=== PATIENT | female | born 1960 | race Caucasian/White ===

== ENCOUNTER → 2019-01-29 | Outpatient (CLI) | payer BC, SELFPAY ==
--- NOTE | 2019-01-29 16:27 | BI_ITS ---
MAMMOGRAPHY - BILATERAL SCREENING REASON FOR EXAM: Female, 58 years old. Routine annual screening examination. PERTINENT HISTORY: Non-contributory. TECHNIQUE: Digital bilateral breast otoniel (3D mammographic acquisition) in the CC and MLO projections. 2-D mediolateral oblique (MLO) and craniocaudad (CC) views of both breasts were obtained. CAD: Full Field Digital Mammography with Computer Added Detection was performed. COMPARISON: Comparison is made with prior study dated September 28, 2016. FINDINGS: Breast Composition: There are scattered areas of fibroglandular density. There are no dominant masses or suspicious calcifications. Stable small benign appearing bilateral axillary lymph nodes. No other significant abnormalities are identified. There has been no significant change since the prior study. BI/SCREEN MAMM (CAD) W/OTONIEL BILAT IMPRESSION: Stable bilateral screening mammogram. Yearly follow-up mammogram recommended. (A) ASSESSMENT CATEGORY: BIRADS Category 2: Benign. A letter regarding these results will be sent to the patient by the facility within 30 days. Approximately 10% of breast cancers are not detected by mammography. A normal mammogram should not delay biopsy of a clinically suspicious abnormality. [id number] Electronically Signed: Eliezer Guerra, at 8:50 EDT , Service support ,
== END | disposition home or self-care (01) ==
PROVIDERS: Family Provider Family Medicine; PCP Family Medicine; Referring Provider Family Medicine; Visit Provider Family Medicine
DX: Z12.31 Encounter for screening mammogram for malignant neoplasm of breast (principal)
CPT/HCPCS: 77063; 77067

== ENCOUNTER → 2020-09-02 16:42 | Outpatient (CLI) | payer BC, SELFPAY ==
--- NOTE | 2020-09-02 16:50 | CT_ITS ---
STUDY: CT CHEST WITHOUT CONTRAST REASON FOR EXAM: Female, 60 years old. STRIDOR -- ACID REFLUX-SX RESOLVED SINCE PT STARTED MEDICATION RADIATION DOSAGE (If Supplied By Facility): CTDIvol = ( 12.75 ) mGy, DLP = ( 442.85 ) mGycm TECHNIQUE: Transaxial imaging was performed without the administration of intravenous contrast material. Individualized dose optimization techniques were used for this CT. COMPARISON: None. FINDINGS: Lungs are clear and well expanded. There is a tiny well rounded nodular density measuring approximately 2.5 mm in the right lower lobe of indeterminate etiology or clinical significance.. There is mild pleural parenchymal scarring in both pulmonary apices but no evidence for pleural effusion or pneumothorax Normal heart and pericardium. Normal mediastinum. Normal hilar regions. Normal unenhanced pulmonary arteries. Normal aorta arch and descending thoracic aorta. Incidental finding of mild asymmetric soft tissue thickening or possibly mucus deposit along the right lateral wall of the proximal trachea. Would recommend clinical correlation and possibly endoscopy for further evaluation if clinically warranted Dorsal spine demonstrates mild degenerative change Nonspecific fatty infiltration of liver.. CT/Chest without Contrast IMPRESSION: Tiny approximately 2.5 mm nodule in the right lower lobe indeterminate etiology or significance. If clinically warranted additional imaging utilizing FLEISCHNER Society criteria recommended for further assessment Incidental finding of asymmetric mucosal thickening or possibly deposition of mucus along the right lateral wall of the proximal trachea which may be further assessed with endoscopy if clinically warranted Electronically Signed: Dany Ahuja MD at 17:26 EST , Service support ,
== END ==
PROVIDERS: PCP Family Medicine; Visit Provider Otolaryngology
DX: R06.1 Stridor (principal)
CPT/HCPCS: 71250

== ENCOUNTER → 2020-12-11 16:44 | Outpatient (CLI) | payer BC, SELFPAY ==
--- NOTE | 2020-12-11 16:50 | CT_ITS ---
STUDY: CT CHEST WITH CONTRAST REASON FOR EXAM: Female, 60 years old. RLL NODULE RADIATION DOSAGE (If Supplied By Facility): CTDIvol = ( 11.12 ) mGy, DLP = ( 312.62 ) mGycm TECHNIQUE: Transaxial imaging was performed following intravenous administration of IV 100mL Isovue-300. Multiplanar coronal and sagittal images were reformatted. Individualized dose optimization techniques were used for this CT. COMPARISON: 09/02/2020. FINDINGS: Small nodule within the left lower lobe measuring 2.8 x 2.0 mm (image 79, series 4), stable in the interval. Minimal left lower lobe atelectasis. Spiculated nodule within the left lower lobe measuring 1.0 cm on prior study, currently measuring 1.0 cm. Small nodule within the left lower lobe on image 56, series 4 measuring 2.7 mm, stable in the interval. Small nodule abutting the major fissure on image 47, series 4 measuring 2.8 mm, stable. Additional nodule within the left upper lobe, image 51, series 4 at the left upper lobe measuring 3.1 mm, stable in the interval. Small nodule within the right middle lobe measuring 3.2 mm, stable in the interval. Several additional small nodules largest measuring 5 mm within the right middle lobe. These are stable. Small nodule within the right lower lobe, image 66, series 4 measuring 2.8 mm, stable. Multiple additional nodules measuring 2 mm in maximum dimension seen on images 53 and 61, series 4, stable. There is no demonstrated pleural abnormality. Normal heart and pericardium. Normal mediastinum. Normal hilar regions. Normal enhanced pulmonary arteries. Normal aorta arch and descending thoracic aorta. Normal osseous structures. Diffuse fatty liver, remainder of the visualized upper abdominal structures are unremarkable. CT/Chest WITH Contrast IMPRESSION: Multiple small bilateral lung nodules as described and essentially stable in the interval. Stability recommended to be performed with CT at 6 months interval for total period of 2 years since initial observation. No acute cardiopulmonary disease. Electronically Signed: Lisa Duarte MD at 0:34 EDT , Service support ,
[2020-12-11 17:06] LABS: CREATININE FINGERSTICK 1.2 mg/dL (0.55-1.02)
== END ==
PROVIDERS: PCP Family Medicine; Referring Provider Otolaryngology; Visit Provider Otolaryngology
DX: R91.1 Solitary pulmonary nodule (principal)
CPT/HCPCS: 71260; Q9967; A4216

== ENCOUNTER → 2022-02-03 | Outpatient (CLI) | payer BC, SELFPAY ==
[2022-02-03 08:29] LABS: Hematocrit 45.3 % (37-47); Hemoglobin 15.1 g/dL (12.0-15.0); Mean Corp Hgb Conc 33.3 g/dL (32-36); Mean Corpuscular Hgb 27.9 pg (27.0-32.0); Mean Corpuscular Volume 83.6 fL (81-99); Mean Platelet Vol. 10.5 fl (6.2-12.0); Platelet Count 209 K/mm3 (150-450); RBC Distribution Width CV 13.6 % (11.6-14.6); RBC Distribution Width SD 41.1 fl (35.1-43.9); Red Blood Count 5.42 M/mm3 (4.2-5.4); White Blood Count 7.1 K/mm3 (4.4-11.0)
[2022-02-03 09:13] LABS: ALB/GLOB Ratio 0.9 RATIO (0.9-2.4); AST(SGOT) 22 U/L (15-37); Alanine Aminotransfer ALT/SGPT 37 U/L (13-56); Albumin, Serum 3.7 g/dL (3.2-5.0); Alkaline Phosphatase 91 U/L (45-117); Anion Gap 6 (5-15); BUN 15 mg/dL (7-18); BUN/Creat Ratio 18.5 RATIO (10-20); Calcium,Total 9.1 mg/dL (8.5-10.1); Chloride 109 mmol/L (98-107); Cholesterol 252 mg/dL (200); Creatinine, Serum 0.81 mg/dL (0.55-1.02); EST Glomerular Filtration Rate 76 mL/min (>60); Est Glom Filt Rate - Afr Amer 92 mL/min (>60); Free T3 3.2 pg/mL (2.18-3.98); Glucose 109 mg/dL (74-106); High Density Lipoprotein 53 mg/dL; Potassium 3.8 mmol/L (3.5-5.1); Protein, Total 7.7 g/dL (6.4-8.2); Sodium Level 140 mmol/L (136-145); T4 Free Direct 1.12 ng/dL (0.76-1.46); Triglycerides 114 mg/dL; Very Low Density Lipoprotein 23 mg/dL (5-40)
[2022-02-03 09:33] LABS: Hepatitis C Antibody Non-Reactive (Nonreactive); Vitamin B12 502 pg/mL (211-911)
== END | disposition home or self-care (01) ==
LOC: LAB 07:48
DX: Z00.00 Encounter for general adult medical examination without abnormal findings (principal); R06.00 Dyspnea, unspecified; E78.00 Pure hypercholesterolemia, unspecified; R79.89 Other specified abnormal findings of blood chemistry; K21.9 Gastro-esophageal reflux disease without esophagitis
CPT/HCPCS: 36415; 80053; 80061; 82607; 84439; 84443; 84481; 85027; 86803

== ENCOUNTER → 2022-12-29 | Outpatient (CLI) | payer BC, SELFPAY ==
[2022-12-29 09:45] LABS: Hemoglobin A1c 5.9 % (3.8-5.6)
[2022-12-29 09:48] LABS: ALB/GLOB Ratio 0.8 RATIO (0.9-2.4); AST(SGOT) 31 U/L (15-37); Alanine Aminotransfer ALT/SGPT 44 U/L (13-56); Albumin, Serum 3.5 g/dL (3.2-5.0); Alkaline Phosphatase 86 U/L (45-117); Anion Gap 6 (5-15); BUN 13 mg/dL (7-18); BUN/Creat Ratio 17.4 RATIO (10-20); Chloride 109 mmol/L (98-107); Cholesterol 198 mg/dL (200); Creatinine, Serum 0.74 mg/dL (0.55-1.02); EST Glomerular Filtration Rate 84 mL/min (>60); Est Glom Filt Rate - Afr Amer 101 mL/min (>60); Globulin 4.2 g/dL (2.2-4.2); Glucose 88 mg/dL (74-106); High Density Lipoprotein 46 mg/dL; Potassium 3.7 mmol/L (3.5-5.1); Protein, Total 7.7 g/dL (6.4-8.2); Sodium Level 140 mmol/L (136-145); T4 Free Direct 1.22 ng/dL (0.76-1.46); Thyroid Stim Hormone (TSH) 9.08 uIU/mL (0.358-3.74); Triglycerides 113 mg/dL; Very Low Density Lipoprotein 23 mg/dL (5-40)
[2022-12-29 10:11] LABS: Hepatitis C Antibody Non-Reactive (Nonreactive); Vitamin B12 483 pg/mL (211-911)
== END | disposition home or self-care (01) ==
LOC: LAB 08:16
DX: Z00.00 Encounter for general adult medical examination without abnormal findings (principal); R79.89 Other specified abnormal findings of blood chemistry; R06.00 Dyspnea, unspecified; K21.9 Gastro-esophageal reflux disease without esophagitis; E78.00 Pure hypercholesterolemia, unspecified; R73.03 Prediabetes; R91.8 Other nonspecific abnormal finding of lung field
CPT/HCPCS: 36415; 80053; 80061; 82607; 83036; 84439; 84443; 84481; 86803

== ENCOUNTER 2023-03-08 01:38 | Emergency (ER) | payer BC, SELFPAY ==
[2023-03-08 01:38] VITALS: BP 163/93; PULSE 92; RESP 14; TEMP 36.3; O2SAT 98; BMI 30.2
--- NOTE | 2023-03-08 02:02 | CT_ITS ---
EXAM: CT MAXILLOFACIAL WITHOUT INTRAVENOUS CONTRAST CLINICAL INDICATION: facial injury TECHNIQUE: Helically acquired images were obtained of the face without intravenous contrast. This CT exam was performed using one or more of the following dose reduction techniques: automated exposure control, adjustment of the mA and/or kV according to patient size, and/or use of iterative reconstruction technique. RADIATION DOSE: Total DLP: 503.38 mGy-cm. COMPARISON: Cranial CT of this date. FINDINGS: BONES/JOINTS: C2/3 disc space is partially fused. C2/3 facet joints are fused. Degenerative disc space narrowing at the C4/5 and C5/6 levels with uncinate hypertrophy. Upper cervical facet arthritis is noted. The odontoid is intact. Degenerative narrowing of both temporomandibular joints. No TMJ dislocation. No acute facial bone fracture. SOFT TISSUES: Unremarkable. No focal subcutaneous swelling. No discrete fluid collections. ORBITS: Unremarkable. Both globes are unremarkable. Extraocular muscles are normal. Retrobulbar fat appears unremarkable. SINUSES: Unremarkable as visualized. Clear. MASTOID AIR CELLS: Unremarkable as visualized. Clear. CT/Sinus/Facial Bone IMPRESSION: No acute facial bone fracture or TMJ dislocation. Cervical degenerative disc disease and facet arthritis. Electronically Signed: Tu Ernst MD at 3:19 EDT ,
--- NOTE | 2023-03-08 02:02 | CT_ITS ---
We are attempting to reach an attending provider to discuss findings. An addendum with communication details will be sent when the communication is complete. EXAM: CT HEAD WITHOUT INTRAVENOUS CONTRAST CLINICAL INDICATION: head injury TECHNIQUE: Multiple axial images were obtained of the head without intravenous contrast. This CT exam was performed using one or more of the following dose reduction techniques: automated exposure control, adjustment of the mA and/or kV according to patient size, and/or use of iterative reconstruction technique. RADIATION DOSE: Total DLP: 745.49 mGy-cm. COMPARISON: No relevant prior studies available. FINDINGS: BRAIN AND EXTRA-AXIAL SPACES: A thin ribbon of lobulated hyperdensity seen along the left side of the falx cerebri, indicating an acute parafalcine subdural hematoma which measures up to 3 mm in thickness. This small subdural hematoma does not cause significant mass effect upon the adjacent parafalcine cortex. No subdural blood is seen overlying the cerebral convexities or along either side of tentorium. No evidence of acute infarct. No subarachnoid hemorrhage or epidural hematoma. There is preservation of the neil/white matter interface. Posterior fossa structures are unremarkable. Ventricles are appropriate for age. No hydrocephalus. Basal cisterns are patent. BONES/JOINTS: Unremarkable. No discrete lytic or blastic abnormalities. No linear or depressed skull fracture. SOFT TISSUES: Unremarkable. No scalp hematoma. SINUSES: Unremarkable as visualized. Clear. MASTOID AIR CELLS: Unremarkable. Clear. ORBITS: Visualized globes, extraocular muscles, optic nerves and retrobulbar fat appear unremarkable. CT/Brain/Head without Contrast IMPRESSION: Small acute left parafalcine subdural hematoma, measuring up to 3 mm in thickness. No skull fracture or parenchymal hemorrhage identified. Nonstandard communication protocol initiated. Electronically Signed: Tu Ernst MD at 2:44 EDT ,
--- NOTE | 2023-03-08 03:10 | CT_ITS ---
EXAM: CT CERVICAL SPINE WITHOUT INTRAVENOUS CONTRAST CLINICAL INDICATION: head injury TECHNIQUE: Helically acquired images were obtained of the cervical spine without intravenous contrast. 2D reformatted images were reviewed. This CT exam was performed using one or more of the following dose reduction techniques: automated exposure control, adjustment of the mA and/or kV according to patient size, and/or use of iterative reconstruction technique. RADIATION DOSE: Total DLP: 362.61 mGy-cm. COMPARISON: Facial bone CT of this date. FINDINGS: VERTEBRAE: Cervical vertebrae demonstrate normal curvature and alignment. No compression fracture, posterior element fracture or facet dislocation. The odontoid is intact. No discrete lytic or blastic abnormality. Normal alignment. Normal craniocervical junction and cervicothoracic junction. DISCS/SPINAL CANAL/NEURAL FORAMINA: C2/3 disc space is partially fused and the C2/3 facet joints are fused. Mild degenerative disc space narrowing at C3/4 with mild uncinate hypertrophy at this level. Moderately severe degenerative disc space narrowing at C4/5 and C5/6 with mild endplate sclerosis, marginal osteophytes and uncinate hypertrophy. Severe degenerative disc space narrowing at C6/7 with uncinate hypertrophy. Upper thoracic disc spaces are relatively preserved. Extensive cervical facet arthritis is noted. Broad-based annular bulging and posterior osteophytes mildly flatten the ventral aspect of thecal sac at the degenerated levels. Multilevel neural foraminal encroachment is present due to uncinate and facet hypertrophy, more severe on the left. No critical thecal sac stenosis. SOFT TISSUES: Unremarkable. No prevertebral soft tissue swelling. No soft tissue hematoma. LUNG APICES: Minimal biapical pleural parenchymal scarring. Visualized upper ribs are intact. CT/Spine Cervical without Contras IMPRESSION: Extensive cervical degenerative changes. No evidence of acute cervical spinal fracture or spondylolisthesis. Electronically Signed: Tu Ernst MD at 3:53 EDT ,
--- NOTE | 2023-03-08 03:42 | EDS_ITS ---
HPI History of Present Illness Chief Complaint: Fall Informant: patient and spouse/S.O. Narrative Narrative: Patient is a 62-year-old female with past medical history of GERD and hypothyroidism. She states that because of her GERD she will take Pepto-Bismol multiple times throughout the day. She states she felt she was having a flare and went to get some out of the kitchen this morning around 1:30 AM. She states that the manager gyn door was down and she tripped on this falling forward striking her head/face. She denies any LOC. She states she was able to get back up after the fall but noticed that she had facial swelling and nasal bleeding. She states the bleeding stopped and at this time she has no headache or light sensitivity or neck pain but secondary to the trauma comes in for evaluation. PFSH PFS Home Medications lansoprazole 30 mg capsule,delayed release (Prevacid) 30 mg PO DAILY 08/19/16 [History Last Taken Unknown] omeprazole 20 mg capsule,delayed release 20 mg PO BID 08/19/16 [History Last Taken Unknown] acetaminophen 300 mg-codeine 30 mg tablet 1 - 2 tab PO Q6H PRN Pain ##12 08/20/16 [Rx Last Taken Unknown] amoxicillin 875 mg tablet 875 mg PO BID #14 tabs 08/20/16 [Rx Last Taken Unknown] Allergy/AdvReac Type Severity Reaction Status Date / Time No Known Allergies Allergy Verified 08/19/16 21:19 Social History Smoking Status: Never smoker [facility] ED Constitutional Constitutional ED: Denies chills or fever(s) Eyes Eyes: Denies blurry vision or change in vision ENT ENT ED: Reports other Details: Positive nosebleed ; Denies sore throat Cardiovascular Cardiovascular: Denies chest pain Respiratory/Chest Respiratory/Chest: Denies cough or dyspnea Gastrointestinal Gastrointestinal: Denies abdominal pain, diarrhea, nausea or vomiting Genitourinary Genitourinary ED: Denies dysuria Musculoskeletal Musculoskeletal: Denies back pain, myalgias or neck pain Integumentary Reports Abrasions Neurologic Neurologic: Denies headache(s), paresthesias or weakness Hematologic/Lymphatic Hematologic/Lymphatic: Denies easy bleeding or easy bruising EXAM Physical Exam Const Vital Signs: 03/08/23 01:38 Temperature 97.4 F L Temperature Source Temporal Pulse Rate 92 Respiratory Rate 14 Blood Pressure 163/93 H Blood Pressure Mean 116 Pulse Ox 98 Oxygen Delivery Method Room Air Positive well nourished and well developed General Appearance ED: well developed HEENT HEENT Narrative: Patient has soft tissue swelling and ecchymosis to the bridge of the nose. There is also soft tissue swelling and ecchymosis to the left upper lip. No signs of depressed or basilar skull fracture No obvious dental fracture or jaw abnormality noted There is an internal left upper lip laceration that is dermal layer deep without active bleeding or foreign body. No septal hematoma noted Eyes PERRL and EOMs intact bilaterally Eyes Narrative: No hyphema Neck supple Neck Narrative: No bony deformity or step-off of the cervical spine no midline pain with palpation Patient is able to move her neck in all directions without pain Chest Wall palpation of chest normal Resp normal respiratory effort and clear to auscultation bilaterally Cardio regular rate and regular rhythm GI normal to inspection, nondistended, normoactive bowel sounds, non-tender, non- distended and no masses Auscultation: normoactive bowel sounds Palpation: soft Back/Spine Back/Spine Narrative: No bony deformity or step-off of the thoracic or lumbar spine no midline pain on palpation Extremity normal to inspection Neuro oriented x3 and CN's II-XII intact bilaterally Sensorium / Orientation: alert Motor Exam: strength 5/5 throughout Psych mental status grossly normal Skin Skin Narrative: Soft tissue swelling and ecchymosis to the left upper lip and bridge of the nose as documented above MDM MDM MDM Narrative Medical decision making narrative: Patient presented to the ER awake and alert with normal neurologic exam. She reported mechanical fall and therefore there is no need for cardiac or syncope work-up. With differential diagnosis concerning for skull fracture versus brain bleed versus facial fracture CT of the head and face were obtained. Facial CT revealed no acute trauma but head CT showed a small 3 mm subdural hematoma. The patient does not take blood thinners even aspirin and her neuro exam is normal but as we do not have neurosurgery at this facility she cannot stay. Therefore [facility] is contacted and they do agree to accept the patient at this time as an ER to ER transfer secondary to the brain bleed status post fall. Patient was informed of this and is agreeable to the plan of care. She has remained hemodynamically stable and neurologically intact for her entire ER stay History & Record Review Discussion w/independent historian: Patient Radiography Diagnostic Testing: Clinical Impression(s) from Imaging Studies Brain CT 03/08/23 02:02 IMPRESSION: Small acute left parafalcine subdural hematoma, measuring up to 3 mm in thickness. No skull fracture or parenchymal hemorrhage identified. Nonstandard communication protocol initiated. Electronically Signed: Tu Ernst MD at 2:44 EDT , ADDENDUM: 03/08/23 0253 IMPRESSION: Small acute left parafalcine subdural hematoma, measuring up to 3 mm in thickness. No skull fracture or parenchymal hemorrhage identified. Nonstandard communication protocol initiated. N.B. : The above Results were Read Back by Tu Ernst MD to Nickolas Boateng DO, and understanding confirmed on 03/08/2023 02:47:02 (ET). Electronically Signed: Tu Ernst MD at 2:44 EDT , Facial/Sinus 03/08/23 02:02 IMPRESSION: No acute facial bone fracture or TMJ dislocation. Cervical degenerative disc disease and facet arthritis. Electronically Signed: Tu Ernst MD at 3:19 EDT , Management Discussion w/another healthcare provider: Biology Department Chair and Radiologist Critical Care Time Critical Care Time: Yes Critical care time (excluding procedures): Discussing w/Patient &/or Family/Educational Fundraising Director, Discussing w/Consultants, Arranging Admission or Transfer and - (Critical care time of 33 minutes) Discharge Plan Triage Chief Complaint: Fall ED Provider: Nickolas Boateng Dx/Rx/DC Orders Clinical Impression: Acute subdural hematoma, Contusion of face, Accidental fall Prescriptions: No Action omeprazole 20 MG capsule 20 mg PO BID lansoprazole [Prevacid] 30 MG capsule 30 mg PO DAILY amoxicillin 875 MG tablet 875 mg PO BID Qty: 14 0RF acetaminophen-codeine 1 TABLET tablet 1 - 2 tab PO Q6H PRN (Reason: Pain) Qty: 12 0RF Primary Care Provider: Alfredo Gallardo Referrals: Alfredo Gallardo DO [Primary Care Provider] - Disposition Disposition: Acute Care Hospital Discharge Location: [facility]
[2023-03-08 03:48] LABS: Absolute Lymphocyte Count 2.11 X10^3/uL (0.83-4.51); Absolute Neutrophil Count 4.7 X10^3/uL (2.0-7.7); Basophil# 0.05 X10^3/uL; Basophil% 0.7 % (0-1); Eosinophil# 0.12 X10^3/uL; Eosinophils% 1.6 % (0-5); Hematocrit 43.5 % (37-47); Hemoglobin 14.3 g/dL (12.0-15.0); Lymphocyte # 2.11 X10^3/ul (0.83-4.51); Lymphocyte % 27.4 % (19-41); Mean Corp Hgb Conc 32.9 g/dL (32-36); Mean Corpuscular Hgb 28.3 pg (27.0-32.0); Mean Platelet Vol. 9.4 fl (6.2-12.0); Monocyte# 0.65 X10^3/uL; Monocyte% 8.5 % (0-10); NRBC Flagged by Analyzer 0 % (0-5); Neutrophil # 4.73 X10^3/uL (2.7-7.7); Neutrophil % 61.4 % (47-70); Platelet Count 254 K/mm3 (150-450); RBC Distribution Width CV 13.5 % (11.6-14.6); RBC Distribution Width SD 42.3 fl (35.1-43.9); Red Blood Count 5.06 M/mm3 (4.2-5.4); White Blood Count 7.7 K/mm3 (4.4-11.0)
[2023-03-08 03:56] LABS: International Normalized Ratio 0.9; Prothrombin Time (Protime)PT. 11.7 SECONDS (11.7-14.9)
[2023-03-08 03:57] LABS: Partial Thromboplast Time 37.7 Seconds (24.1-36.2)
[2023-03-08 04:02] LABS: Anion Gap 5 (5-15); BUN 14 mg/dL (7-18); BUN/Creat Ratio 16.4 RATIO (10-20); Calcium,Total 9.2 mg/dL (8.5-10.1); Chloride 110 mmol/L (98-107); Creatinine, Serum 0.86 mg/dL (0.55-1.02); EST Glomerular Filtration Rate 71 mL/min (>60); Est Glom Filt Rate - Afr Amer 86 mL/min (>60); Estimated Creatinine Clearance 53.64 ml/min; Glucose 124 mg/dL (74-106); Potassium 3.4 mmol/L (3.5-5.1); Sodium Level 143 mmol/L (136-145)
--- NOTE | 2023-03-08 04:03 | NURSING ---
CALLED PHYSICIANS AT 0350AM AND WAS GIVEN AN 8AM ETA FOR A TRAUMA TRANSFER. THEY SAID THEY WILL TRY TO OUTSOURCE BUT WHEN I CALLED BACK AT 0405AM THEY SAID THEY COULD NOT OUTSOURCE THE TRIP.
[2023-03-08 04:20] VITALS: BP 144/88; PULSE 87; RESP 18; TEMP 36.6; O2SAT 99
[2023-03-08 05:18] VITALS: BP 137/84; PULSE 80; RESP 16; TEMP 36.7; O2SAT 95
[2023-03-08 05:55] VITALS: BP 137/84; PULSE 80; RESP 16; TEMP 36.7; O2SAT 95
[2023-03-08 07:36] VITALS: BP 131/85; PULSE 75; RESP 15; O2SAT 97
== END 2023-03-08 08:37 | disposition short-term general hospital (02) ==
PROVIDERS: Emergency Provider Emergency Medicine; Visit Provider Emergency Medicine
DX: S06.5X0A Traumatic subdural hemorrhage without loss of consciousness, initial encounter (principal); K21.9 Gastro-esophageal reflux disease without esophagitis; E03.9 Hypothyroidism, unspecified; S01.511A Laceration without foreign body of lip, initial encounter; S00.531A Contusion of lip, initial encounter; S00.33XA Contusion of nose, initial encounter; W18.09XA Striking against other object with subsequent fall, initial encounter
CPT/HCPCS: 70450; 70486; 72125; 80048; 85025; 85610; 85730; 99283

== ENCOUNTER 2023-03-15 13:53 | Emergency (ER) | payer BC, SELFPAY ==
[2023-03-15 13:54] VITALS: BP 147/107; PULSE 79; RESP 18; TEMP 36.6; O2SAT 97; BMI 30.7
[2023-03-15 14:06] VITALS: BP 123/89; PULSE 79; RESP 12; O2SAT 99
--- NOTE | 2023-03-15 14:22 | EX.ED.VIS.HA ---
HPI History of Present Illness Chief Complaint: Dizziness Narrative Narrative: 62-year-old female presenting with mild headache symptoms. She states her head feels heavy. She denies visual complaints or hearing complaints. She denies photophobia or phonophobia. She states that she does not believe she is lightheaded but she does feel like my body has to catch up with me. Patient seen about a week ago after a mechanical fall in which she struck her head and had subdural hematoma and was sent to [facility]. She had to repeat CTs done with no worsening subdural. Patient was discharged home on Keppra as prophylaxis. Last dose was yesterday. She does not know if she is feeling this way because she stopped it Keppra but she wanted to get checked out. She denies chest pain, palpitations, shortness of breath. She denies nausea, vomiting, diarrhea. She states been eating and drinking well and making normal urine and stool. Patient states that she had a higher level activity yesterday than she normally would throughout the week and was feeling like she was on the mend and now she feels worse. She has not had any new trauma. She is on anticoagulation. [facility] Medical History Brain stem hemorrhage Esophageal stricture GERD (gastroesophageal reflux disease) Home Medications acetaminophen 300 mg-codeine 30 mg tablet 1 - 2 tab PO Q6H PRN Pain ##12 08/20/16 [Rx Last Taken Unknown] esomeprazole magnesium 40 mg capsule,delayed release 40 mg PO Q24H 03/15/23 [History Last Taken Unknown] levothyroxine 25 mcg tablet 25 mcg PO DAILY 03/15/23 [History Last Taken Unknown] Allergy/AdvReac Type Severity Reaction Status Date / Time No Known Allergies Allergy Verified 03/15/23 13:56 Family History no significant family his Surgical History History of tonsillectomy Hx of section Social History household members: spouse housing: house Smoking Status: Never smoker EXAM Physical Exam Const Vital Signs: 03/15/23 13:54 03/15/23 14:06 03/15/23 14:31 Temperature 97.8 F Temperature Source Temporal Pulse Rate 79 79 Respiratory Rate 18 12 Blood Pressure 147/107 H 123/89 H Blood Pressure Mean 120 100 Pulse Ox 97 99 98 Oxygen Delivery Method Room Air Room Air Room Air 03/15/23 16:30 Temperature Temperature Source Pulse Rate Respiratory Rate Blood Pressure 106/71 Blood Pressure Mean Pulse Ox Oxygen Delivery Method General Appearance ED: Negative for pallor HEENT Reports normocephalic and head/scalp atraumatic Eyes PERRL and EOMs intact bilaterally General Eye ED: Negative for pale conjunctiva Neck no lymphadenopathy Chest Wall inspection of chest normal and palpation of chest normal Resp normal respiratory effort and clear to auscultation bilaterally Auscultation: Negative for rales, rhonchi or wheezes Cardio regular rate and regular rhythm GI normal to inspection, nondistended, normoactive bowel sounds and non-distended Auscultation: normoactive bowel sounds Palpation: soft Narrative: Deferred Extremity General Extremety ED: Negative for edema or tenderness General Extremity: Negative for edema Neuro oriented x3, CN's II-XII intact bilaterally and no sensory deficits noted Sensorium / Orientation: awake and alert Motor Exam: strength 5/5 throughout Psych mental status grossly normal Attitude: No agitated Skin no rashes or lesions noted and no wounds General Skin Exam: Negative for jaundice or pallor MDM MDM MDM Narrative Medical decision making narrative: Patient presenting with headache and the feeling of being off. Differential includes subdural hematoma, headache, dehydration, anemia, electrolyte abnormalities, dysrhythmia. CBC will be obtained to assess white blood cell count, hemoglobin, platelets. BMP to assess renal function and electrolytes. High-sensitivity troponin EKG to assess for ischemia and dysrhythmia. Chest x-ray to rule out pneumonia. CBC shows no leukocytosis. Hemoglobin hematocrit are stable. Platelets normal. Renal function electrolytes within normal limits. High-sensitivity tone is 3. EKG was obtained to assess for dysrhythmia and this is normal sinus rhythm with a rate of 76 bpm without sign of ischemic change or ectopy on my interpretation. Chest x-ray shows no acute process on my interpretation. We did obtain a CT brain and this shows an improving dural hematoma. At this point I feel the patient is stable for discharge home. She did ask if the symptoms could be caused by the Keppra and I was not sure. I recommended she call her neurosurgeon. She also asked for details on whether she should go back to work part-time. I again deferred to her neurosurgeon for those details. She found understanding. She discharged home in stable condition. Impression: 1. Headache 2. Generalized weakness 3. History of subdural hematoma Lab Data Labs: Laboratory Results - last 24 hr 03/15/23 03/15/23 14:39 15:07 WBC 8.0 RBC 5.51 H Hgb 15.2 H Hct 49.6 H MCV 90.0 MCH 27.6 MCHC 30.6 L RDW Std Deviation 44.7 H RDW Coeff of Janes 13.4 Plt Count 228 MPV 9.7 Immature Gran % (Auto) 0.500 Neut % (Auto) 67.2 Lymph % (Auto) 24.4 [place] % (Auto) 6.5 Eos % (Auto) 0.8 Baso % (Auto) 0.6 Absolute Neuts (auto) 5.3 Absolute Lymphs (auto) 1.94 Nucleated RBC % 0 Sodium Cancelled 140 Potassium Cancelled 3.8 Chloride Cancelled 109 H Carbon Dioxide Cancelled 27.0 Anion Gap Cancelled 4 L BUN Cancelled 15 Creatinine Cancelled 0.86 Estim Creat Clear Calc Cancelled 53.64 Est GFR (MDRD) Af Amer Cancelled 86 Est GFR (MDRD) Non-Af Cancelled 71 BUN/Creatinine Ratio Cancelled 17.5 Glucose Cancelled 126 H Calcium Cancelled 9.1 Troponin I High Sens Cancelled 3 Radiography Diagnostic Testing: Clinical Impression(s) from Imaging Studies Brain CT 03/15/23 14:25 IMPRESSION: There is interval decreasing left parafalcine subdural hematoma since the previous study. Electronically Signed: Harlan Nichole DO at 14:48 EDT , Chest X-Ray 03/15/23 14:43 IMPRESSION: No radiographic evidence of acute cardiopulmonary disease. Electronically Signed: Harlan Nichole DO at 15:45 EDT , Discharge Plan Triage Chief Complaint: Dizziness ED Provider: Mick Marte Dx/Rx/DC Orders Instructions: ED Dizziness, Uncertain Cause Prescriptions: No Action acetaminophen-codeine 1 TABLET tablet 1 - 2 tab PO Q6H PRN (Reason: Pain) Qty: 12 0RF esomeprazole magnesium 40 mg capsule,delayed release(DR/EC) 40 mg PO Q24H Patient Comments: TAKE 1 CAPSULE BY MOUTH EVERY DAY levothyroxine 25 mcg tablet 25 mcg PO DAILY Patient Comments: TAKE 1 TABLET BY MOUTH EVERY OTHER DAY Primary Care Provider: Alfredo Gallardo Referrals: Alfredo Gallardo DO [Primary Care Provider] - Disposition Disposition: Home, Self Care Discharge Date/Time: 03/15/23 16:31
--- NOTE | 2023-03-15 14:25 | CT_ITS ---
STUDY: CT BRAIN WITHOUT CONTRAST REASON FOR EXAM: Female, 62 years old. headache RADIATION DOSAGE (If Supplied By Facility): CTDIvol = ( 47.06 ) mGy, DLP = ( 819.74 ) mGycm TECHNIQUE: Transaxial CT imaging of the brain was performed without administration of intravenous contrast material. Individualized dose optimization techniques were used for this CT. COMPARISON: March 08, 2023 FINDINGS: Normal soft tissue structures. Normal calvarium. Normal size ventricles and extra-axial spaces for the patient''s age. Normal white matter tracts of the cerebral hemispheres. Normal basal ganglia and thalami. Normal brainstem. Normal cerebellum. There is interval decreasing left parafalcine subdural hematoma since the previous study. There are no findings of an acute ischemic infarction. Normal visualized paranasal sinuses. CT/Brain/Head without Contrast IMPRESSION: There is interval decreasing left parafalcine subdural hematoma since the previous study. Electronically Signed: Harlan Nichole DO at 14:48 EDT ,
[2023-03-15 14:31] VITALS: O2SAT 98
--- NOTE | 2023-03-15 14:43 | RAD_ITS ---
INDICATION: chest pain EXAMINATION/TECHNIQUE: X-RAY - XR Chest 1 View COMPARISON: FINDINGS: LINES/DEVICES: None. LUNGS: No consolidation, edema or effusion. No pneumothorax. MEDIASTINUM AND CARDIOVASCULAR STRUCTURES: Cardiac silhouette not enlarged. Central airways and mediastinal contour are unremarkable. BONES AND SOFT TISSUES: Unremarkable. RAD/Chest 1 View (Portable) IMPRESSION: No radiographic evidence of acute cardiopulmonary disease. Electronically Signed: Harlan Nichole DO at 15:45 EDT ,
[2023-03-15 14:47] LABS: Absolute Lymphocyte Count 1.94 X10^3/uL (0.83-4.51); Absolute Neutrophil Count 5.3 X10^3/uL (2.0-7.7); Basophil# 0.05 X10^3/uL; Basophil% 0.6 % (0-1); Eosinophil# 0.06 X10^3/uL; Eosinophils% 0.8 % (0-5); Hematocrit 49.6 % (37-47); Hemoglobin 15.2 g/dL (12.0-15.0); Lymphocyte # 1.94 X10^3/ul (0.83-4.51); Lymphocyte % 24.4 % (19-41); Mean Corp Hgb Conc 30.6 g/dL (32-36); Mean Corpuscular Hgb 27.6 pg (27.0-32.0); Mean Platelet Vol. 9.7 fl (6.2-12.0); Monocyte# 0.52 X10^3/uL; Monocyte% 6.5 % (0-10); NRBC Flagged by Analyzer 0 % (0-5); Neutrophil # 5.34 X10^3/uL (2.7-7.7); Neutrophil % 67.2 % (47-70); Platelet Count 228 K/mm3 (150-450); RBC Distribution Width CV 13.4 % (11.6-14.6); RBC Distribution Width SD 44.7 fl (35.1-43.9); Red Blood Count 5.51 M/mm3 (4.2-5.4)
[2023-03-15 15:41] LABS: Anion Gap 4 (5-15); BUN 15 mg/dL (7-18); BUN/Creat Ratio 17.5 RATIO (10-20); Calcium,Total 9.1 mg/dL (8.5-10.1); Chloride 109 mmol/L (98-107); Creatinine, Serum 0.86 mg/dL (0.55-1.02); EST Glomerular Filtration Rate 71 mL/min (>60); Est Glom Filt Rate - Afr Amer 86 mL/min (>60); Estimated Creatinine Clearance 53.64 ml/min; Glucose 126 mg/dL (74-106); Potassium 3.8 mmol/L (3.5-5.1); Sodium Level 140 mmol/L (136-145); Troponin-I HS 3 pg/mL (3.0-54.0)
[2023-03-15 16:30] VITALS: BP 106/71
== END 2023-03-15 16:31 | disposition home or self-care (01) ==
PROVIDERS: Emergency Provider Student in an Organized Health Care Education/Training Program; Visit Provider Student in an Organized Health Care Education/Training Program
DX: R42 Dizziness and giddiness (principal); R51.9 Headache, unspecified; Z79.890 Hormone replacement therapy
CPT/HCPCS: 70450; 71045; 80048; 84484; 85025; 93005; 99283; A4216

== ENCOUNTER → 2023-06-20 | Outpatient (CLI) | payer BC, SELFPAY ==
[2023-06-20 09:43] LABS: Hematocrit 44.5 % (37-47); Hemoglobin 14.1 g/dL (12.0-15.0); Mean Corp Hgb Conc 31.7 g/dL (32-36); Mean Corpuscular Volume 85.1 fL (81-99); Mean Platelet Vol. 9.9 fl (6.2-12.0); Platelet Count 247 K/mm3 (150-450); RBC Distribution Width CV 13.6 % (11.6-14.6); RBC Distribution Width SD 42.2 fl (35.1-43.9); Red Blood Count 5.23 M/mm3 (4.2-5.4); White Blood Count 5.8 K/mm3 (4.4-11.0)
[2023-06-20 10:14] LABS: T4 Total, Thyroxin 11.4 ug/dL (4.8-13.9); Thyroid Stim Hormone (TSH) 7.66 uIU/mL (0.358-3.74)
[2023-06-20 10:37] LABS: Hemoglobin A1c 5.9 % (3.8-5.6)
== END | disposition home or self-care (01) ==
DX: Z00.00 Encounter for general adult medical examination without abnormal findings (principal); E11.9 Type 2 diabetes mellitus without complications
CPT/HCPCS: 36415; 83036; 84436; 84443; 85027

== ENCOUNTER → 2023-09-12 | Outpatient (CLI) | payer BC, SELFPAY ==
[2023-09-12 10:33] LABS: T4 Free Direct 1.07 ng/dL (0.76-1.46); Thyroid Stim Hormone (TSH) 5.93 uIU/mL (0.358-3.74)
== END | disposition home or self-care (01) ==
LOC: LAB 08:33
DX: Z00.00 Encounter for general adult medical examination without abnormal findings (principal); E03.9 Hypothyroidism, unspecified; R79.89 Other specified abnormal findings of blood chemistry
CPT/HCPCS: 36415; 84439; 84443

== ENCOUNTER → 2024-01-06 | Outpatient (CLI) | payer BC, SELFPAY ==
[2024-01-06 10:23] LABS: Hemoglobin A1c 5.8 % (3.8-5.6)
[2024-01-06 10:25] LABS: Microalbumin,Random Urine 8.7 mg/L (NO RANGE EST.); Microalbumin:Creatinine Ratio 5.2 mg/g CRE (<30 mg/g CRE)
[2024-01-06 10:37] LABS: T4 Free Direct 1.18 ng/dL (0.76-1.46); Thyroid Stim Hormone (TSH) 4.52 uIU/mL (0.358-3.74)
[2024-01-08 08:55] LABS: Vitamin B12 376 pg/mL (211-911)
== END | disposition home or self-care (01) ==
DX: Z00.00 Encounter for general adult medical examination without abnormal findings (principal); K21.9 Gastro-esophageal reflux disease without esophagitis; Z79.899 Other long term (current) drug therapy; R73.03 Prediabetes; E03.9 Hypothyroidism, unspecified; R79.89 Other specified abnormal findings of blood chemistry
CPT/HCPCS: 36415; 82043; 82570; 82607; 83036; 84439; 84443

== ENCOUNTER → 2024-01-18 | Outpatient (CLI) | payer BC, SELFPAY ==
--- NOTE | 2024-01-18 16:06 | BI_ITS ---
MAMMOGRAPHY - BILATERAL SCREENING 3-D TOMOSYNTHESIS REASON FOR EXAM: Female, 63 years old. SCREENING PERTINENT HISTORY: No significant family history. TECHNIQUE: 2-D mammograms and 3-D Tomosynthesis of the breast (s) were performed. CAD was performed. COMPARISON: 01/29/2019 FINDINGS: The breast composition is composed of scattered fibroglandular density. Scattered benign calcifications are seen. No dense spiculated masses or suspicious microcalcifications are identified. No architectural distortion is identified. There is no skin thickening or retraction. There has been no significant change since the prior study. BI/SCRN MAMM (CAD)W/OTONIEL BILAT IMPRESSION: No mammographic signs of malignancy. Routine yearly mammograms recommended. ASSESSMENT CATEGORY: BIRADS Category 1: Negative. A letter regarding these results will be sent to the patient by the facility within 30 days. FOLLOW UP RECOMMENDATION: Yearly follow up mammogram recommended. (A) Approximately 10% of breast cancers are not detected by mammography. A normal mammogram should not delay biopsy of a clinically suspicious abnormality. Electronically Signed: Pedrito Fischer MD at 13:30 EDT ,
== END | disposition home or self-care (01) ==
LOC: OPBI 16:22
DX: Z12.31 Encounter for screening mammogram for malignant neoplasm of breast (principal)
CPT/HCPCS: 77063; 77067

== ENCOUNTER 2025-05-26 22:33 | Emergency (ER) | payer BC, SELFPAY ==
[2025-05-26 22:34] VITALS: BP 167/107; PULSE 75; RESP 16; TEMP 36.6; O2SAT 100; BMI 30.2
--- NOTE | 2025-05-26 23:18 | EKG12_ITS ---
Test Reason : DYSRHYTHMIA
--- NOTE | 2025-05-26 23:18 | CT_ITS ---
PROCEDURE: CT/Abdomen/Pelvis W IV Cont ONLY
[2025-05-26 23:29] LABS: Hematocrit 42.4 % (37-47); Hemoglobin 14.6 g/dL (12.0-15.0); Immature Granulocytes Count 0.030 X10^3/uL (0.0-0.0); Mean Corp Hgb Conc 34.4 g/dL (32-36); Mean Corpuscular Volume 84.1 fL (81-99); Mean Platelet Vol. 9.5 fl (6.2-12.0); NRBC Flagged by Analyzer 0 % (0-5); Platelet Count 272 K/mm3 (150-450); RBC Distribution Width CV 14.0 % (11.6-14.6); RBC Distribution Width SD 43.1 fl (35.1-43.9); Red Blood Count 5.04 M/mm3 (4.2-5.4); White Blood Count 11.0 K/mm3 (4.4-11.0)
[2025-05-26] MEDS: Lidocaine 2% Viscous15 ML UDC 15 ML PO (23:36)
[2025-05-26] MEDS: Pantoprazole Sodium 40 MG in 0.9% Normal Saline (100mL MB+) 100 ML 300 MG IV (23:36)
[2025-05-26] MEDS: 0.9% Normal Saline (1000mL) 1,000 ML 999 ML IV (23:36)
[2025-05-26 23:50] LABS: Troponin T High Sensitivity < 6 ng/L (<=14)
[2025-05-26 23:52] LABS: Lipase 17 U/L (13-75)
--- NOTE | 2025-05-27 | US_ITS ---
PROCEDURE: US/Gallbladder
[2025-05-27 00:03] LABS: AST(SGOT) 21 U/L (<=31); Alanine Aminotransfer ALT/SGPT 18 U/L (<=34); Albumin, Serum 4.1 g/dL (3.4-4.8); Alkaline Phosphatase 91 U/L (35-104); Anion Gap 10 (5-15); BUN 12 mg/dL (4-19); BUN/Creat Ratio 18.2 RATIO (10-20); Bilirubin, Direct 0.09 mg/dL (0.00-0.30); Calcium,Total 8.8 mg/dL (7.6-11.0); Carbon Dioxide 25.2 mmol/L (21.0-32.0); Chloride 106 mmol/L (98-108); Estimated Creatinine Clearance 82.82 ml/min (50-250); Globulin 3.2 g/dL (2.2-4.2); Glucose 104 mg/dL (70-99); Potassium 3.1 mmol/L (3.3-5.1)
[2025-05-27 00:28] VITALS: BP 138/86; PULSE 73; RESP 16; O2SAT 99
[2025-05-27] MEDS: HYDROmorphone 0.5 MG/0.5 ML SYRINGE IV (01:00)
[2025-05-27] MEDS: Piperacil/Tazobactam 3.375 GM in 0.9% Normal Saline (50mL MB+) 50 ML IV (01:01)
--- NOTE | 2025-05-27 01:48 | EX.ED.DYSGE1 ---
HPI History of Present Illness Chief Complaint: Abd Pain Informant: patient and spouse/S.O. Narrative Narrative: Patient is a 64-year-old female with past medical history of GERD and hypothyroidism. She states that she takes omeprazole for her GERD and that it typically will control her symptoms. She states that last night she ate a hamburger which she does not typically eat and ate later in the evening which she does not typically do. She states she woke this morning and just felt off. She states she noticed some generalized upper abdominal discomfort with slight radiation into the chest. She states she was able to take her omeprazole as well as some ibuprofen and had symptom improvement. However she states as the medications wore off the symptoms would return. She states that they have been present throughout the entire day but as they are not resolving as they typically do with her standard GERD symptoms she was concerned that there was another reason for her persistent discomfort and with this she presents for evaluation [facility] Medical History Brain stem hemorrhage GERD (gastroesophageal reflux disease) Esophageal stricture Home Medications ?Medication ?Instructions ?Recorded ?Last Taken ?Type esomeprazole magnesium 40 mg 40 mg PO Q24H PRN upset abdomen 03/15/23 Unknown History capsule,delayed release levothyroxine 25 mcg tablet 25 mcg PO DAILY 03/15/23 Unknown History sucralfate 1 gram tablet (Carafate) 1 g PO TID 7 days #21 tabs 05/27/25 Unknown Rx Allergy/AdvReac Type Severity Reaction Status Date / Time No Known Allergies Allergy Verified 05/26/25 22:33 Family History no significant family his Surgical History History of tonsillectomy Hx of section Social History household members: spouse housing: house Smoking Status: Never smoker ROS ROS ED Constitutional Constitutional ED: Denies chills or fever(s) Eyes Eyes: Denies blurry vision or change in vision ENT ENT ED: Denies sore throat Cardiovascular Cardiovascular: Reports chest pain Respiratory/Chest Respiratory/Chest: Denies cough or dyspnea Gastrointestinal Gastrointestinal: Reports abdominal pain; Denies constipation, diarrhea, nausea or vomiting Genitourinary Genitourinary ED: Denies dysuria Musculoskeletal Musculoskeletal: Reports back pain; Denies myalgias Integumentary Denies rash Neurologic Neurologic: Denies headache(s) Hematologic/Lymphatic Hematologic/Lymphatic: Denies easy bleeding or easy bruising EXAM Physical Exam Const Vital Signs: 05/26/25 22:34 05/27/25 00:28 05/27/25 02:00 Temperature 97.9 F Temperature Source Oral Pulse Rate 75 73 Respiratory Rate 16 16 Blood Pressure 167/107 H 138/86 H 145/86 H Blood Pressure Mean 127 103 105 Pulse Ox 100 99 Oxygen Delivery Method Room Air Room Air Positive well nourished and well developed General Appearance ED: well developed; Negative for pallor HEENT HEENT Narrative: Normocephalic atraumatic No tongue or lip swelling no oral lesions no airway edema or compromise No secondary findings in the posterior pharynx to suggest infection Eyes PERRL and EOMs intact bilaterally General Eye ED: Negative for scleral icterus Neck supple Chest Wall palpation of chest normal Resp normal respiratory effort and clear to auscultation bilaterally Cardio regular rate and regular rhythm Rate: other Other Details: Heart is regular rate and rhythm without murmurs rubs or gallop Radial and carotid pulses are equal and symmetric GI non-distended and no masses GI Narrative: Abdomen is soft and nondistended with normal active bowel sounds The patient has diffuse upper abdominal pain but it is greatest in the right upper quadrant. There is voluntary guarding in the right upper quadrant but negative sign No peritoneal sign. No pulsatile mass Auscultation: normoactive bowel sounds Palpation: soft Back/Spine no CVA tenderness Extremity normal to inspection Neuro oriented x3, CN's II-XII intact bilaterally and no sensory deficits noted Sensorium / Orientation: alert Motor Exam: strength 5/5 throughout Psych mental status grossly normal Skin no rashes or lesions noted and no wounds General Skin Exam: Negative for jaundice or pallor MDM MDM MDM Narrative Medical decision making narrative: Patient presented to the ER complaining of persistent upper abdominal discomfort throughout the day not responding to her typical home treatments. With the pain being in the upper abdomen and radiating to the chest this could be an exacerbation of her GERD however patient could have also atypical presentation for ACS or potentially pancreatitis or biliary colic or acute cholecystitis. Secondary to this basic blood work was obtained with EKG. EKG revealed normal sinus rhythm going against cardiac dysrhythmia as a cause of her symptoms and no ischemic changes. The patient's troponin at less than 6 correlates with the EKG going against ACS as a cause of her discomfort. She does not have a white count or left shift which would go against secondary infection such as colitis or acute cholecystitis. Liver enzymes are also normal going against potentially gallbladder dysfunction. Lipase is normal going against pancreatitis. However as she did have a positive sign on exam I did elect to perform a CT scan with IV contrast as I cannot perform an ultrasound at this time of night. The CT scan did show gallstones and sludge with slight surrounding edema concerning for evolving/developing acute cholecystitis. Secondary to this the patient was given a dose of Zosyn in the ER. She will need an ultrasound to confirm potentially cholecystitis. The ultrasound was able to be performed and it showed gallstones with equivocal findings for acute cholecystitis once again. The case was then discussed with general surgeon Dr. Velásquez. She was able to review the imaging and agrees there is gallstones present but does not feel there were any secondary findings such as [place] cholecystic fluid/edema or wall thickening to correlate with acute cholecystitis which also would correlate with the fact that her labs revealed no clinically significant findings. Therefore she does not recommend an emergent HIDA scan and feels the patient can be discharged and followed up with her as an outpatient. She feels that history and symptoms would correlate more with exacerbation of her gastritis. Therefore she recommend she continue her PPI but add Carafate to see if this helps reduce/control symptoms. The plan of care was discussed with the patient who is agreeable to it and as vitals remained stable and abdomen soft and nonsurgical she is otherwise safe for discharge History & Record Review Discussion w/independent historian: Patient and Significant other Lab Data Attestation: I reviewed the patient's lab results. Labs: Laboratory Results - last 24 hr 05/26/25 23:05 WBC 11.0 RBC 5.04 Hgb 14.6 Hct 42.4 MCV 84.1 MCH 29.0 MCHC 34.4 RDW Std Deviation 43.1 RDW Coeff of Janes 14.0 Plt Count 272 MPV 9.5 Immature Gran % (Auto) 0.300 Neut % (Auto) 66.9 Lymph % (Auto) 22.9 [place] % (Auto) 8.3 Eos % (Auto) 1.2 Baso % (Auto) 0.4 Absolute Neuts (auto) 7.3 Absolute Lymphs (auto) 2.51 Nucleated RBC % 0 Sodium 141 Potassium 3.1 L Chloride 106 Carbon Dioxide 25.2 Anion Gap 10 BUN 12 Creatinine 0.65 L Estim Creat Clear Calc 82.82 Est GFR (MDRD) Non-Af 98 BUN/Creatinine Ratio 18.2 Glucose 104 H Calcium 8.8 Total Bilirubin 0.28 Direct Bilirubin 0.09 AST 21 ALT 18 Alkaline Phosphatase 91 Troponin T High Sens < 6 Total Protein 7.2 Albumin 4.1 Globulin 3.2 Lipase 17 Radiography Diagnostic Testing: Clinical Impression(s) from Imaging Studies Abdomen/Pelvis CT 05/26/25 23:18 IMPRESSION: Right hepatic lobe segment 7 hypodense mass 3.2 cm in diameter showing marginal nodular enhancement suggesting hemangioma. Gall bladder sludge and calculi with mild wall edema worrisome of evolving cholecystitis. Advise clinical and laboratory correlation. Reading Location: [place] [id number] Gallbladder Ultrasound 05/27/25 00:00 IMPRESSION: Equivocal findings for acute cholecystitis with gallstones and slight pericholecystic fluid however with normal gallbladder wall and negative 's sign. Consider HIDA scan for further evaluation if there is continued concern. Hepatic steatosis and hepatomegaly. Reading Location: [facility] Management Discussion w/another healthcare provider: [employer] Discharge Plan Triage Chief Complaint: Abd Pain ED Provider: Nickolas Boateng Dx/Rx/DC Orders Clinical Impression: Cholelithiasis, Gastritis, Hypothyroidism Instructions: ED Gallstones with Biliary Colic, ED Gastritis (Adult) Prescriptions: New sucralfate [Carafate] 1 gram tablet 1 g PO TID 7 Days Qty: 21 0RF No Action esomeprazole magnesium 40 mg capsule,delayed release(DR/EC) 40 mg PO Q24H PRN (Reason: upset abdomen) Patient Comments: TAKE 1 CAPSULE BY MOUTH EVERY DAY levothyroxine 25 mcg tablet 25 mcg PO DAILY Patient Comments: TAKE 1 TABLET BY MOUTH EVERY OTHER DAY Primary Care Provider: Alfredo Gallardo Referrals: Alfredo Gallardo DO [Primary Care Provider, Medical] Winter Velásquez MD [Med Staff - Active Staff, General Surgery] Activity Restrictions/Additional Instructions: Your ultrasound showed gallstones but no obvious findings of gallbladder infection. The case was discussed with general surgeon Dr. Velásquez. He was able to review your images and agrees that there is no obvious cause of gallbladder infection or need for gallbladder surgery at this time. Please continue your esomeprazole and add the Carafate 3 times a day to provide a extra coating of protection to the stomach. This should help reduce any pain from gastritis. Please avoid aspirin and nonsteroidal anti-inflammatory drugs such as Motrin Advil Aleve as this could worsen symptoms. Also please avoid greasy fatty food high caffeine intake or spicy food as this could exacerbate symptoms. Follow-up with Dr. Velásquez for repeat evaluation and to discuss potentially need for HIDA scan to further assess her gallbladder. If you develop worsening pain or a fever then return to the ER for repeat evaluation. Print Language: [place] Disposition Disposition: Home, Self Care
[2025-05-27 02:00] VITALS: BP 145/86
[2025-05-27 03:15] VITALS: BP 130/70; PULSE 73; RESP 18; TEMP 36.6; O2SAT 94
== END 2025-05-27 03:36 | disposition home or self-care (01) ==
PROVIDERS: Emergency Provider Emergency Medicine; Visit Provider Emergency Medicine
DX: K80.20 Calculus of gallbladder without cholecystitis without obstruction (principal); E03.9 Hypothyroidism, unspecified; K29.70 Gastritis, unspecified, without bleeding; K21.9 Gastro-esophageal reflux disease without esophagitis; Z79.899 Other long term (current) drug therapy
CPT/HCPCS: 74177; 76705; 80048; 80076; 83690; 84484; 85025; 93005; 96361; 96365; 96366; 96367; 96375; 99283; Q9967; A4216; J2405